=== PATIENT | female | born 1955 | race Caucasian/White ===

== ENCOUNTER 2017-09-01 07:30 | Inpatient (IN) | payer BC ==
--- NOTE | 2017-11-11 13:28 | HP ---
H&P (Free Text) History and Physical: Date of Visit: November 05, 2017 Patient Name: Joleen العراقي : 1955 Gender: female Age: 62 years Primary Care Physician: CAMERON Lauren Reason for Visit: H and P for Right THR 11/04/17 - Prescription Monitoring CC: History and physical examination prior to undergoing a right total hip arthroplasty on 11/17/2017. HPI: Ms. العراقي is a pleasant 62-year-old female who was scheduled to undergo a right total hip arthroplasty in August, however was found to need further medical workup including a cardiology consultation. She underwent this with Dr. Guerrero on 09/11/2017 where she was cleared for the surgical procedure. She as well has been seen by her primary doctor's office, Dr. Calvo, and was offered clearance for a right total hip replacement. The patient has tried conservative methods such as NSAIDs and decreased activity, however has had no benefit from this and has elected to undergo a right total hip arthroplasty by Dr. Nguyen. CURRENT MEDICATIONS: 1. Metoprolol 25 mg b.i.d. 2. Hydrochlorothiazide 25 mg daily. 3. Spiriva. 4. Metformin 1000 mg 1 tablet b.i.d. 5. NURSING HOME ADMISSIONS DIRECTOR Thyroid 90 mg 1 tablet by mouth each morning. 6. Vitamin D3 4000 international units twice daily. 7. Lipitor 10 mg 1 tablet by mouth at bedtime. 8. Cozaar 50 mg 1 tablet by mouth daily. 9. Ibuprofen 800 mg by mouth 3 times a day as needed. 10. Diclofenac sodium 75 mg 1 tablet twice daily with food. ALLERGIES: Penicillin. PAST MEDICAL HISTORY: 1. Diabetes with a typical blood sugar taken at home of 128. 2. Osteoarthritis. 3. Hypertension. 4. Elevated cholesterol. PAST SURGICAL HISTORY: 1. Left total hip arthroplasty, 06/2016. 2. Tubal ligation approximately 37 years ago. SOCIAL HISTORY: The patient is currently a tobacco smoker, approximately 10 cigarettes a day. Denies alcohol. Currently living with her , retired. Postoperatively the patient will either go home or stay with her sister in [place]. She is unsure if she would want visiting home nurse services and physical therapy, as she feels that she would benefit more from outpatient. We discussed either using Coumadin or Xarelto, depending on her choice at time of discharge. ROS: GENERAL: Negative for lightheadedness, dizziness, weight gain or loss. No difficulty with anesthesia. HEENT: No headaches, history of seizures or epilepsy. LUNGS: No history of COPD, chronic cough or shortness of breath. CARDIAC: History of tachycardia which was evaluated by cardiology and cleared. No history of murmurs, heart attacks or chest pain. : Negative for urinary frequency, urgency, urinary tract infections, or kidney stones. GI: Negative for nausea, vomiting, constipation, and diarrhea. No history of blood in her stool or her urine. NEUROLOGIC: No numbness or tingling. No paresthesias. HEMATOLOGIC: Negative for DVT. Negative for anemia. ENDOCRINE: Positive for DM. Positive for thyroid disorders. INTEGUMENTARY: No open wounds or sores. No difficulty with wound healing. INFECTIOUS DISEASE: No history of MRSA, MARCELINO, HIV or hepatitis. Vitals: Ht: 62" Wt: 245lb BP: 140/86 Resp: 20 Pain Level: 0 BMI: 44.8 EXAM: GENERAL: Well appearing, no acute distress. Alert and oriented. Appears slightly older than stated age. LUNGS: Clear to auscultation bilaterally. No crackles, rhonchi or wheezes. HEART: Regular rate and rhythm. No murmurs, gallops or rubs. ABDOMEN: Soft, nontender, nondistended. Obese. Negative CVA tenderness bilaterally. LOWER EXTREMITIES: Mildly antalgic gait, favoring the left-hand side. Tenderness with internal rotation. Posterior tibial pulses 2+ bilaterally. Negative Homans sign bilaterally. Moderate edema bilaterally in lower extremities. Positive dorsiflexion and plantar flexion bilaterally. Sensation intact to light touch. STUDIES: X-rays were obtained of the right hip and pelvis on 11/05/[address] Nguyen. ASSESSMENT: Right end stage osteoarthritis. PLAN: The patient is scheduled to undergo a right total hip arthroplasty with Dr. Nguyen on 11/17/2017. She has been cleared by her primary care doctor as well as her cytotechnologist/cytology supervisor. She would like to recover either at home or at her sister's house postoperatively, and may decline visiting home nurse services and home PT and instead move to outpatient physical therapy. We discussed different anticoagulation such as Coumadin or Xarelto with her if she does not have visiting home nurse services. Her pain medication of Percocet 5/325 was sent to the patient preoperatively. She was educated to stop taking her diclofenac as well as taking her ibuprofen at least 5 days prior to the surgery. She had no other questions or concerns.
[2017-11-17] MEDS ORDERED: Acetaminophen IV 1GM/100ML * 1,000 MG/100 ML VIAL IVPB ONE (06:00)
[2017-11-17] MEDS ORDERED: Famotidine TAB* 20 MG PO ONE (06:00)
[2017-11-17] MEDS ORDERED: Dexamethasone IV* 4 MG/ML 1 ML (4 MG) IV SLOW PU ONE (06:00)
[2017-11-17] MEDS ORDERED: Buffered Lidocaine 0.9% SYRIN* 5 ML/SYR SYRINGE INTRADERM ONE (06:00)
[2017-11-17] MEDS ORDERED: celeCOXIB CAP* 200 MG PO ONE (06:00)
[2017-11-17] MEDS ORDERED: Gabapentin CAP(*) 300 MG PO ONE (06:00)
[2017-11-17] MEDS ORDERED: celeCOXIB CAP* 100 MG ONE (06:06)
[2017-11-17] MEDS ORDERED: Gabapentin CAP(*) 300 MG ONE (06:06)
[2017-11-17] MEDS ORDERED: Dexamethasone IV* 4 MG/ML 1 ML (4 MG) ONE (06:06)
[2017-11-17] MEDS ORDERED: Clindamycin 900 MG IVPREMIX(* 0 MG/0 ML SDV IV ONE (06:07)
[2017-11-17] MEDS ORDERED: Famotidine TAB* 20 MG ONE (06:07)
[2017-11-17] MEDS ORDERED: Buffered Lidocaine 0.9% SYRIN* 5 ML/SYR SYRINGE ONE (06:07)
[2017-11-17] MEDS ORDERED: Acetaminophen IV 1GM/100ML * 100 ML ONE (06:09)
[2017-11-17] MEDS ORDERED: Midazolam* 1 MG/ML 10 ML VIAL (10 MG) ONE (06:56)
[2017-11-17] MEDS ORDERED: fentaNYL* 50 MCG/ML 2 ML VIAL (100 MCG VIAL) ONE (06:56)
[2017-11-17] MEDS ORDERED: Propofol* 10 MG/ML 20 ML BTL IV PUSH ONE (06:57)
[2017-11-17] MEDS ORDERED: Ondansetron INJ* 2 MG/ML VIAL ONE (06:57)
[2017-11-17] MEDS ORDERED: Phenylephrine INJ* 10 MG/ML 1 ML VIAL (10 MG) ONE (06:57)
[2017-11-17] MEDS ORDERED: celeCOXIB CAP* 100 MG PO ONE (07:00)
[2017-11-17] MEDS ORDERED: ceFAZolin 2 GM PREMIX (*) 2 GM/50 ML BAG IVPB ONE (07:10)
[2017-11-17] MEDS ORDERED: Bupivacaine 0.5% SDV PF* 10-30ML VIAL ONE (07:14)
[2017-11-17] MEDS ORDERED: ROPIVACAINE 5 MG/ML 30 ML BTL (0.5%) ONE (07:15)
[2017-11-17] MEDS ORDERED: Levalbuterol HFA INHALER* 1 PUFF MDI ONE (07:15)
[2017-11-17] MEDS ORDERED: Levalbuterol 0.63MG/3ML NEB* UNIT OF USE INH ONE ×2 (07:33→08:40)
[2017-11-17] MEDS ORDERED: Lidocaine 2% PF * 5 ML VIAL ONE (08:10)
[2017-11-17] MEDS ORDERED: Naloxone* 0.4 MG/ML 1 ML VIAL IV PRN (08:34)
[2017-11-17] MEDS ORDERED: HYDROmorphone INJ* 1 MG/ML CARPUJECT SYRINGE IV PRN (08:34)
[2017-11-17] MEDS ORDERED: fentaNYL* 50 MCG/ML 2 ML VIAL (100 MCG VIAL) IV PRN (08:34)
[2017-11-17] MEDS ORDERED: Ondansetron INJ* 2 MG/ML VIAL IV PRN (08:34)
[2017-11-17] MEDS ORDERED: Morphine INJ* 2 MG/ML 1 ML CARPUJECT IV PRN (10:28)
[2017-11-17] MEDS ORDERED: Magnesium Hydroxide LIQ* 30 ML UDC PO PRN (10:28)
[2017-11-17] MEDS ORDERED: Ondansetron TAB* 4 MG PO PRN (10:28)
[2017-11-17] MEDS ORDERED: Cyclobenzaprine TAB* 10 MG PO PRN (10:28)
[2017-11-17] MEDS ORDERED: Morphine INJ* 4 MG/ML 1 ML CARPUJECT IV PRN (10:28)
--- NOTE | 2017-11-17 11:09 | RAD ---
Indication: Right hip replacement. Single view of the pelvis with special attention to the right hip demonstrates right hip replacement in satisfactory position. No periprosthetic fracture is noted. IMPRESSION: Right hip replacement in satisfactory position.
--- NOTE | 2017-11-17 11:51 | OP ---
DATE OF OPERATION: 11/17/17 - ROOM #[id number] DATE OF : 57 SURGEON: Camron Nguyen MD PHLEBOTOMY PROGRAM COORDINATOR: CAMERON Mccloud ANESTHESIA: Spinal with sedation. PRE-OP DIAGNOSIS: Osteoarthritis, right hip. POST-OP DIAGNOSIS: Osteoarthritis, right hip. OPERATIVE PROCEDURE: Right total hip arthroplasty. ESTIMATED BLOOD LOSS: 100 cc. COMPLICATIONS: None. HARDWARE: Barb #6, reduced to length standard offset M/L taper, 52 mm Continuum cup, 15 degree elevated liner, plus 0, 36 mm head. SUMMARY: Ms. العراقي is a 62-year-old female who has had a long history of troubles with her joints. She had undergone a left total hip arthroplasty and had done very well with that. She was very interested in having her right hip done as well. I discussed with her that a total hip arthroplasty should work well to decrease her pain and improve her function. Risks of surgery such as infection, scar formation, stiffness, DVT, pulmonary embolism, hardware failure , leg length discrepancy, instability and continued pain were some of the risks discussed. She had been declared medically optimized and wished to proceed. DESCRIPTION OF PROCEDURE: The patient was brought to the OR and spinal anesthesia was introduced. Gao catheter was placed. She was then rolled into the left lateral decubitus position and an axillary roll was placed. Right hip area was prepped and then draped. An incision was made centered about where I thought the greater trochanter was, it was carried down through the skin and subcutaneous fat. Small bleeders encountered were ligated using electrocautery. Eventually the fascia was found and with palpation, I could feel nicely over her greater trochanter. The fascia was split proximally and then the muscle underneath was bluntly split using fingertip dissection. Trochanteric bursa was taken down using electrocautery and a sharp Courtney was placed under the gluteus medius/gluteus minimus. A nice exposure of the piriformis was obtained. Electrocautery was then used to take down the short external rotators and capsule and quite a bit of clear joint fluid was encountered. T capsulotomy was made and the hip was easily dislocated. Femoral neck was marked using the cutting guide and femoral head was resected. Anterior C retractor was placed, even with just the C retractor this broke into her acetabulum anteriorly. Beginning with a 44 reamer, she was first deepened a little bit and then progressively expanded. I still had a shell of bone anteriorly even with the small hole. Similar to the left side at 50, I had good bleeding bone and a 50 mm reamer was run and the 52 mm cup was impacted into place. Even with the anterior defect, I had a nice solid scratch fit. Two screws were placed and a wonderful bite was obtained with both of them. Trial liner was placed and attention was turned to the proximal femur. Superior/posterior portion of her incision had to be extended in order to allow access to the femoral shaft considering the depth of fat that she had. Millicent Corona was present throughout the case from positioning to approach and trial and then placement of the instruments in the case and then closure. The case could not have been done without an assist. Eventually, better exposure was obtained and box osteotome was used to open the femoral canal. Canal finder was eventually easily passed. Beginning with a 4 broach, she was progressively broached to a 6 and I had some resistance with the 6. She had a 5 on the other side and while I knew I could go to at least a 6 if not a 7.5, considering how tight she was with the 6 and the resistance I had, I thought I would stay at the 6. She was then trialed with a 0 as well as a minus 3.5 and at 45 degrees of internal rotation, she would tend to leaver out and when she was up at 90 degrees of hip flexion. She could not get further because of her body habitus. Considering that there was a small suction that would open, I thought having the 15 degree elevated liner posteriorly would improve her stability and this was called for. When the broach was reapplied, the 6 was solid in the femur. The 6 was removed and the trial liner was removed. A 15 degree elevated liner was impacted into place. Hip was again copiously pulse lavaged. A #6 M/L taper with a standard offset but reduced neck length was then impacted into place. She was trialed with a minus and I actually had managed a countersink the 6 just a little bit and that I wanted to lengthen her a little bit, I went with the plus 0 head. 0 head was impacted into place and she had even better stability where only at 60 degrees did she start to lose suction over the hip. The hip was again copiously pulse lavaged and the fascia was repaired using interrupted #1 Vicryl sutures. Subcutaneous tissues were repaired in layers. The skin was closed using juan. Sterile dressing and an abduction pillow were applied in the OR. The patient was then rolled onto the hospital bed and was stable on transfer to the recovery room. [id number]/[facility] #: [id number] MTDD
[2017-11-17] MEDS ORDERED: Dextrose 50% Syringe 50 ML* 25 GM/50 ML SYRINGE IV PUSH PRN (12:21)
--- NOTE | 2017-11-17 13:38 | CONS ---
CC: Camron Nguyen MD; Dr. Calvo. CONSULTATION REPORT: DATE OF ADMISSION: 11/17/17 DATE OF CONSULT: 11/17/17 PATIENT OF: Camron Nguyen MD REFERRED TO: Dr. Yoon Calzada. PRIMARY CARE PHYSICIAN: CAMERON Lauren from Dr. Calvo office. CHIEF COMPLAINT: Right hip osteoarthritis. REASON FOR CONSULT: Medical management. HISTORY OF PRESENT ILLNESS: Mrs. العراقي is a pleasant 62-year-old female with past medical history significant for hypertension, hyperlipidemia, COPD, and osteoarthritis who was admitted on 11/17/17 after she underwent a right total hip replacement. The patient was initially scheduled to undergo a right total hip back in August of this year, however, was found to need further medical workup including a cardiology consultation. She was seen by Dr. Guerrero in early September and she was cleared for her hip replacement from a cardiac standpoint. She is a patient of Dr. Calvo office and she was seen by his physician pharmacy technician assistant, Dafne Roy, and obtained a medical clearance for her hip replacement as well. The patient has had chronic issue with bilateral hip pain for which she had left total hip arthroplasty back in June 2016. She has tried multiple conservative methods such as NSAIDs and decreased activity level ; however, she had no benefit from this and she was found to be a good candidate for right total hip arthroplasty to be performed on a later date. We were asked to see the patient for medical management after her hip replacement. She was seen in consultation at the recovery room. She denied any chest pain , shortness of breath, or any other associated symptoms. She has been a long- time smoker approximately a pack per day and would like to consider smoking cessation during her hospitalization. PAST MEDICAL HISTORY: Significant for: 1. Hypertension. 2. COPD without exacerbation or history of pneumonia. 3. Diabetes mellitus. 4. Hyperlipidemia. 5. Osteoarthritis. PAST SURGICAL HISTORY: Significant for a left total hip arthroplasty back in June 2016. She also had a tubal ligation about 37 years ago. CURRENT MEDICATIONS: Her medications at home include: 1. Metoprolol 25 mg p.o. b.i.d. 2. Hydrochlorothiazide 25 mg p.o. daily. 3. Spiriva MDI inhaler 2 puffs in the morning for shortness of breath. 4. Metformin 1000 mg 1 tablet b.i.d. 5. Thyroid [place] supplement 90 mg 1 tablet q.a.m. 6. Vitamin D3 4000 International Units twice daily. 7. Lipitor 10 mg p.o. q.h.s. 8. Cozaar 50 mg 1 tablet daily. 9. Ibuprofen 800 mg t.i.d. as needed for arthritic aches and pains. 10. Diclofenac 75 mg 1 tablet b.i.d. with food. ALLERGIES: She is allergic to PENICILLIN. FAMILY HISTORY: She denies any family history of stroke or heart disease. SOCIAL HISTORY: The patient is , lives with her . Both of them are retired. She is a current smoker of approximately 1 pack per day. She denies alcohol intake. REVIEW OF SYSTEMS: See HPI, otherwise negative. She denies any headache, dizziness, blurred vision, or double vision. No sore throat, cough, wheezing, or shortness of breath. She denies any chest pain, palpitations, or ankle swelling. No back pain, flank pain, dysuria, hematuria, or urinary frequency. No fever, chills, night sweats, or recent weight loss. PHYSICAL EXAM: General: She is a pleasant, obese, upper middle age female, lying comfortably on her bed at PACU, and in no acute distress or discomfort. Vitals: Revealed blood pressure of 135/91, pulse of 63, respirations of 12, and O2 sat of 98% on 2 L oxygen. HEENT: Head is normocephalic, atraumatic. Sclerae anicteric. PERRLA. EOMs intact. Oropharynx is pink, moist with no exudate. Neck: Supple. Trachea midline. No cervical adenopathy, thyromegaly, or JVD. Lungs: Clear to auscultation bilaterally. There are decreased breath sounds at the bases, but no rales, wheezes, or rhonchi. Heart: Regular rate and rhythm. Normal S1 and S2 without rubs, murmurs, or gallops. Back: With normal curvature. No CVA tenderness. Breast Exam: Deferred at this time. Abdomen: Soft, round and obese, nontender, and nondistended. There is no hernia, masses, or hepatosplenomegaly. There is no guarding, rigidity, or rebound tenderness. Extremities: Without cyanosis, clubbing, or edema. Dressing from right hip replacement with associated pillow was noted in the lower extremities. Neurologic: Grossly intact. Rectal Exam: Deferred at this time. DIAGNOSTIC STUDIES/LAB DATA: The patient's glucose [id number] checked preoperatively was 130 and postoperatively was 112 at PACU. IMPRESSION: A 62-year-old female who underwent a right total hip replacement, postop day #0 with multiple medical comorbidities including hypertension, diabetes mellitus, chronic obstructive pulmonary disease, hyperlipidemia, and tobacco abuse who will be followed by the hospitalist team for medical management. PLAN/RECOMMENDATIONS: 1. Right hip end-stage osteoarthritis. The patient is postop day #0 status post total right hip replacement on 11/17/17. All management is to be determined by the orthopedic team. The patient will start her physical therapy and occupational therapy tomorrow. She has a Gao catheter in place, I anticipate will be discontinued tomorrow. Anticoagulation therapy will be initiated with heparin at 5000 units subQ and it is up to the orthopedic team to determine Coumadin coverage vs Xarelto based on the patient's preference. She appears to be comfortable at this point and will be covered with analgesics and narcotics for pain control. 2. Hypertension. The patient's blood pressure appears to be stable. We will continue her metoprolol, hydrochlorothiazide, and Cozaar as scheduled. 3. Chronic obstructive pulmonary disease without exacerbation. The patient appears to be comfortable with good oxygen saturation. We will maintain her on oxygen supplement via nasal cannula and titrate to keep oxygen saturation above 95%. We will maintain her on her Spiriva and add a nebulizer treatment on as needed basis. 4. Diabetes mellitus. The patient informed me that her blood sugar runs at home at 120 to 128 using her metformin. I discussed with her better glycemic control in the immediate postoperative period and that will include frequent blood glucose monitoring at q.h.s. and q.a.c. and to cover her with insulin scale. 5. Hyperlipidemia. We will continue her Lipitor. 6. Tobacco abuse. I had a discussion with the patient about smoking cessation and she seems to be willing to try quitting during her hospitalization. I offered and provided nicotine patch to use and will discuss smoking quit hotline if needed when she is discharged home. 7. DVT prophylaxis: The patient will be covered with subcu heparin t.i.d. and the orthopedic team will determine long-term anticoagulation therapy with Coumadin or Xarelto. 8. Code status: The patient is a full code. Thank you for this consultation and we will follow up with the patient accordingly. CAMERON CALDERON [id number]/[facility] #: [id number] MTDD
--- NOTE | 2017-11-17 15:01 | CONS ---
CC: Dr. Nguyen; Dr. Gil Calvo * CONSULTATION REPORT: ADDENDUM: Case was reviewed and discussed with Domenica BARNES. Ms. العراقي is a 62-year-old lady with a past medical history of hypertension, COPD , diabetes, hyperlipidemia, osteoarthritis, who was admitted for an elective right total hip arthropathy on 11/17/17. The hospitalist service was consulted to manage her comorbidities. At this point, her blood pressure is well controlled. We are going to hold her diuretics and continue her losartan and metoprolol with holding parameters. Her diabetes seems to be well controlled as an outpatient with metformin only, so we are going to check her fingersticks and cover with lispro sliding scale. The hospitalist service will continue to follow with you. Thank you for this consultation. [id number]/[facility] #: [id number] TONEY
[2017-11-17] MEDS: ceFAZolin 1 GM in Dextrose (*) 1 GM/50 ML BAG IVPB SCH (15:33)
[2017-11-17] MEDS ORDERED: Mouth Piece, Nicotine* 1 EACH CARTRIDGE INH ONE (16:00)
[2017-11-17] MEDS ORDERED: Nicotine Inhaler* 10 MG AMP Q2H PRN CRAVING INH (16:00)
[2017-11-17] MEDS ORDERED: Warfarin TAB(*) 10 MG PO ONE (17:00)
[2017-11-17] MEDS: Insulin LISPRO* 1 UNITS UNIT SUBCUT SCH (17:15)
[2017-11-17] MEDS ORDERED: metFORMIN* 1,000 MG TAB PO SCH (21:00)
[2017-11-17] MEDS ORDERED: Metoprolol Tartrate TAB* 25 MG PO SCH (21:00)
[2017-11-17] MEDS: oxyCODONE/Acetamin 5/325 MG* TAB PO PRN (23:23)
[2017-11-17] MEDS: Heparin VIAL(*) 5000 UNITS/ML VIAL (FIVE THOUSAND) SUBCUT SCH (23:24)
[2017-11-17] MEDS: Docusate CAP* 100 MG PO SCH (23:24)
[2017-11-17] MEDS: Metoprolol Tartrate TAB* 25 MG PO SCH (23:24)
[2017-11-17] MEDS: Magnesium Hydroxide LIQ* 30 ML UDC PO SCH (23:27)
[2017-11-17] MEDS: Clobetasol 0.05% OINT* 30 GM TUBE TOPICAL SCH (23:27)
[2017-11-17] MEDS: Nicotine Patch Removal NOTE PATCH OFF SCH (23:28)
[2017-11-18] MEDS: ceFAZolin 1 GM in Dextrose (*) 1 GM/50 ML BAG IVPB SCH ×2 (00:10→08:02)
[2017-11-18] MEDS: Insulin LISPRO* 1 UNITS UNIT SUBCUT SCH ×5 (00:12→21:44)
[2017-11-18] MEDS: oxyCODONE/Acetamin 5/325 MG* TAB PO PRN ×2 (04:24→13:03)
[2017-11-18 06:27] LABS: Hematocrit 31 % (35-47); Hemoglobin 10.4 g/dl (12.0-16.0); Mean Platelet Volume 8.9 um3 (7.4-10.4); Platelet Count 239 10^3/ul (150-450)
[2017-11-18 06:38] LABS: EGFR Non-African American 78.6 (>60)
[2017-11-18 06:47] LABS: INR 1.1 (0.77-1.02)
[2017-11-18] MEDS: oxyCODONE TAB* 5 MG TAB PO PRN ×2 (08:03→19:07)
[2017-11-18] MEDS: Metoprolol Tartrate TAB* 25 MG PO SCH ×2 (08:32→21:50)
[2017-11-18] MEDS: Atorvastatin* 10 MG TAB PO SCH (08:32)
[2017-11-18] MEDS: Thyroid TAB* 30 MG PO SCH (08:32)
[2017-11-18] MEDS: Docusate CAP* 100 MG PO SCH ×2 (08:32→21:44)
[2017-11-18] MEDS: Losartan TAB* 25 MG PO SCH (08:32)
[2017-11-18] MEDS: Nicotine PATCH 21 MG/24 HR* PATCH TRANSDERM SCH (08:33)
[2017-11-18] MEDS: Cholecalciferol TAB* 1000 UNITS PO SCH (08:33)
[2017-11-18] MEDS: Clobetasol 0.05% OINT* 30 GM TUBE TOPICAL SCH ×2 (08:35→21:51)
[2017-11-18] MEDS: Magnesium Hydroxide LIQ* 30 ML UDC PO SCH ×2 (08:35→21:44)
[2017-11-18] MEDS: Heparin VIAL(*) 5000 UNITS/ML VIAL (FIVE THOUSAND) SUBCUT SCH ×2 (08:35→21:50)
[2017-11-18] MEDS: NF:Tiotropium Respimt 2.5 mcg(NF) 1 PUFF MDI INH SCH (08:43)
[2017-11-18] MEDS ORDERED: Losartan TAB* 25 MG PO SCH (09:00)
[2017-11-18] MEDS ORDERED: Hydrochlorothiazide TAB* 25 MG PO SCH (09:00)
--- NOTE | 2017-11-18 09:26 | PN ---
Progress Note - Progress Note Date of Service: 11/18/17 SOAP: Subjective: []Patient seen OOB in chair. Pain is well controlled, 3-4/10 with movement. Denies chest pain, shortness of breath, dizziness, nausea, fever or chills. Has refused to do stairs with PT today. Desires dc home tomorrow and prefers outpatient PT. Objective: [] Vital Signs Temp 98.6 F 11/18/17 07:46 Pulse 68 11/18/17 07:46 Resp 16 11/18/17 08:03 BP 112/59 11/18/17 07:46 Pulse Ox 94 11/18/17 08:21 Intake & Output 11/17/17 11/18/17 11/18/17 18:59 06:59 18:59 Intake Total 4050 2999 Output Total 2705 2500 300 Balance 1345 499 -300 Intake: IV Fluids 2400 1025 LR 2400 1025 IVPB 334 LR 334 Oral 1650 1640 Output: Urine 300 Gao 2575 2500 Residual 30 Gao 16 Fr 30 Estimated Blood Loss 100 Other: # Bowel Movements 0 Laboratory Last Values Hgb 10.4 g/dl (12.0-16.0) L 11/18/17 05:30 Hct 31 % (35-47) L 11/18/17 05:30 Plt Count 239 10^3/ul (150-450) 11/18/17 05:30 MPV 8.9 um3 (7.4-10.4) 11/18/17 05:30 INR (Anticoag Therapy) 1.10 (0.77-1.02) H 11/18/17 05:30 Sodium 140 mmol/L (139-145) 11/18/17 05:30 Potassium 4.3 mmol/L (3.5-5.0) 11/18/17 05:30 Chloride 107 mmol/L (101-111) 11/18/17 05:30 Carbon Dioxide 27 mmol/L (22-32) 11/18/17 05:30 Anion Gap 6 mmol/L (2-11) 11/18/17 05:30 BUN 13 mg/dL (6-24) 11/18/17 05:30 Creatinine 0.75 mg/dL (0.51-0.95) 11/18/17 05:30 Est GFR ( Amer) 101.0 (>60) 11/18/17 05:30 Est GFR (Non-Af Amer) 78.6 (>60) 11/18/17 05:30 BUN/Creatinine Ratio 17.3 (8-20) 11/18/17 05:30 Glucose 133 mg/dL (70-100) H 11/18/17 05:30 POC Glucose (mg/dL) 167 mg/dL (70-100) H 11/17/17 23:35 Calcium 8.5 mg/dL (8.6-10.3) L 11/18/17 05:30 General: Well appearing, NAD, calm and cooperative. RLE: Right hip dressing CDI without surrounding erythema. Thigh soft. DF/PF intact. 2+ dp pulse, capillary refill less than two seconds distally. Sensation intact distally. Assessment: []POD 1: s/p right total hip arthroplasty 11/17, Dr Nguyen Plan: []WBAT PT/OT. Encouraged to participate fully with PT, report any concerns to staff. Continued hip precautions. Lovenox, coumadin 6 mg today. Coumadin while in house. Will likely transition to xarelto at DC if patient denies home services. Tentative plan DC home tomorrow
--- NOTE | 2017-11-18 15:02 | PN ---
Subjective Date of Service: 11/18/17 Interval History: Pt feels well, did well with PT, no new complaints Objective Active Medications: Atorvastatin Calcium (Lipitor*) 10 mg PO QAM [facility] Last Admin: 11/18/17 08:32 Dose: 10 mg Cholecalciferol (Vitamin D Tab*) 5,000 units PO QAM [facility] Last Admin: 11/18/17 08:33 Dose: 5,000 units Clobetasol Propionate (Clobetasol 0.05% Oint*) 1 applic TOPICAL BID [facility] Last Admin: 11/18/17 08:35 Dose: 1 applic Cyclobenzaprine HCl (Flexeril Tab*) 10 mg PO TID PRN PRN Reason: SPASMS Dextrose (D50w Syringe 50 Ml*) 12.5 gm IV PUSH .FOR FS < 60 - SS PRN PRN Reason: FS < 60 Docusate Sodium (Colace Cap*) 100 mg PO BID [facility] Last Admin: 11/18/17 08:32 Dose: 100 mg Heparin Sodium (Porcine) (Heparin Vial(*)) 5,000 units SUBCUT Q12HR [facility] Last Admin: 11/18/17 08:35 Dose: 5,000 units Lactated Ringer's (Lactated Ringers 1000 Ml Bag*) 1,000 mls @ 100 mls/hr IV PER RATE [facility] Last Admin: 11/18/17 03:36 Dose: 100 mls/hr Insulin Human Lispro (Humalog*) 0 units SUBCUT ACHS [facility] PRN Reason: Protocol Last Admin: 11/18/17 13:21 Dose: 3 units Losartan Potassium (Cozaar Tab*) [facility] Last Admin: 11/18/17 08:32 Dose: 50 mg Magnesium Hydroxide (Milk Of Magnesia Liq*) 30 ml PO BID [facility] Last Admin: 11/18/17 08:35 Dose: 30 ml Magnesium Hydroxide (Milk Of Magnesia Liq*) 30 ml PO Q6H PRN PRN Reason: constipation Metoprolol Tartrate (Lopressor Tab*) 25 mg PO BID [facility] Last Admin: 11/18/17 08:32 Dose: 25 mg Morphine Sulfate (Morphine Inj (Syringe)*) 2 mg IV Q2H PRN PRN Reason: PAIN - BREAKTHROUGH Morphine Sulfate (Morphine Inj (Syringe)*) 4 mg IV Q2H PRN PRN Reason: PAIN - UNRELIEVED Nicotine (Nicotine Patch 21 Mg/24 Hr*) 1 patch TRANSDERM DAILY [facility] Last Admin: 11/18/17 08:33 Dose: 1 patch Nicotine (Nicotine Inhaler*) 10 mg INH Q2H PRN PRN Reason: CRAVING Last Admin: 11/17/17 16:02 Dose: 10 mg Ondansetron HCl (Zofran Tab*) 4 mg PO Q6H PRN PRN Reason: NAUSEA Oxycodone HCl (Roxycodone Tab*) 10 mg PO Q4H PRN PRN Reason: PAIN - SEVERE Last Admin: 11/18/17 08:03 Dose: 10 mg Oxycodone/Acetaminophen (Percocet 5/325 Tab*) 2 tab PO Q4H PRN PRN Reason: PAIN - MODERATE Last Admin: 11/18/17 13:03 Dose: 2 tab Oxycodone/Acetaminophen (Percocet 5/325 Tab*) 1 tab PO Q4H PRN PRN Reason: PAIN - MILD Last Admin: 11/18/17 04:24 Dose: 1 tab Pharmacy Profile Note (Nicotine Patch Removal Note*) 1 note PATCH OFF 2099 [facility] Last Admin: 11/17/17 23:28 Dose: Not Given Thyroid (Thyroid Tab*) 90 mg PO QAM [facility] Last Admin: 11/18/17 08:32 Dose: 90 mg Tiotropium [place] (Spiriva Respimat 2.5 Mcg(Nf)) 2 puff INH QAM [facility] Last Admin: 11/18/17 08:43 Dose: Not Given Warfarin Sodium (Coumadin Tab(*)) 6 mg PO ONCE@1700 ONE PRN Reason: Protocol Stop: 11/18/17 17:01 Vital Signs - 8 hr 11/18/17 11/18/17 11/18/17 07:04 07:46 08:00 Temperature 98.6 F Pulse Rate 68 Respiratory 18 16 16 Rate Blood Pressure 112/59 (mmHg) O2 Sat by Pulse 96 94 Oximetry 11/18/17 11/18/17 11/18/17 08:03 08:21 13:03 Temperature Pulse Rate Respiratory 16 16 Rate Blood Pressure (mmHg) O2 Sat by Pulse 94 Oximetry Oxygen Devices in Use Now: None, CPAP Appearance: 62 yo F in nAD, AAOx3 Eyes: No Scleral Icterus, PERRLA Ears/Nose/Mouth/Throat: NL Teeth, Lips, Gums, Mucous Membranes Moist Neck: NL Appearance and Movements; NL JVP, Trachea Midline Respiratory: Symmetrical Chest Expansion and Respiratory Effort, - - coarse breath sounds b/l Cardiovascular: NL Sounds; No Murmurs; No JVD, RRR Abdominal: NL Sounds; No Tenderness; No Distention, No Hepatosplenomegaly Lymphatic: No Cervical Adenopathy Extremities: No Clubbing, Cyanosis, - - +1 pitting pedal edema b/l Skin: No Nodules or Sclerosis, - - r hip post op incision not inspected Neurological: Alert and Oriented x 3, NL Muscle Strength and Tone Result Diagrams: 11/18/17 05:30 11/18/17 05:30 Assess/Plan/Problems-Billing Assessment: 62 yo F with h/o smoking 1 ppd, COPD, HTN, dyslipidemia, hypothyroid , DM2 s/p elective R hip replacement on 11/17/17 - Patient Problems (1) Status post total hip replacement, right Comment: doing well As per ortho service (2) Diabetes Comment: - FSBGs fairly well controlled. Continue FSBG AC with lispro ISS. Hold home oral medications, restart on DC. CC diet (3) Hypertension Comment: cont losartan, lopressor. (4) Hypothyroid Comment: continue thyroid home dose (5) Sleep apnea Comment: - cpap (6) DVT prophylaxis Comment: HSQ/coumadin (7) Smoking Comment: counseled to stop x 5 min today on nicotine replacement Status and Disposition: medicine consult, will follow
[2017-11-18] MEDS ORDERED: Warfarin TAB(*) 6 MG PO ONE (17:00)
[2017-11-18] MEDS: Nicotine Patch Removal NOTE PATCH OFF SCH (21:51)
[2017-11-19] MEDS: oxyCODONE/Acetamin 5/325 MG* TAB PO PRN ×3 (02:06→14:08)
[2017-11-19] MEDS: oxyCODONE TAB* 5 MG TAB PO PRN (06:05)
[2017-11-19 07:03] LABS: INR 2.15 (0.77-1.02)
[2017-11-19 07:13] LABS: Hematocrit 29 % (35-47); Hemoglobin 9.5 g/dl (12.0-16.0); Platelet Count 221 10^3/ul (150-450)
[2017-11-19] MEDS: Insulin LISPRO* 1 UNITS UNIT SUBCUT SCH ×2 (07:45→12:24)
[2017-11-19] MEDS: Losartan TAB* 25 MG PO SCH (08:48)
[2017-11-19] MEDS: Metoprolol Tartrate TAB* 25 MG PO SCH (08:48)
[2017-11-19] MEDS: Nicotine PATCH 21 MG/24 HR* PATCH TRANSDERM SCH (08:49)
[2017-11-19] MEDS: Clobetasol 0.05% OINT* 30 GM TUBE TOPICAL SCH (08:49)
[2017-11-19] MEDS: Docusate CAP* 100 MG PO SCH (08:50)
[2017-11-19] MEDS: Cholecalciferol TAB* 1000 UNITS PO SCH (08:50)
[2017-11-19] MEDS: Thyroid TAB* 30 MG PO SCH (08:51)
[2017-11-19] MEDS: Atorvastatin* 10 MG TAB PO SCH (08:51)
[2017-11-19] MEDS: Magnesium Hydroxide LIQ* 30 ML UDC PO SCH (08:53)
[2017-11-19] MEDS: NF:Tiotropium Respimt 2.5 mcg(NF) 1 PUFF MDI INH SCH (08:53)
[2017-11-19] MEDS: Heparin VIAL(*) 5000 UNITS/ML VIAL (FIVE THOUSAND) SUBCUT SCH (09:15)
[2017-11-19 11:50] VITALS: BP 102/45
--- NOTE | 2017-11-19 12:04 | PN ---
Progress Note - Progress Note Date of Service: 11/19/17 SOAP: Subjective: []Patient seen at bedside. She feels well and desires discharge home. Denies CP , SOB, fever, chills, leg numbness, nausea or dizziness. Objective: [ Laboratory Last Values Hgb 9.5 g/dl (12.0-16.0) L 11/19/17 06:01 Hct 29 % (35-47) L 11/19/17 06:01 Plt Count 221 10^3/ul (150-450) 11/19/17 06:01 MPV 9.0 um3 (7.4-10.4) 11/19/17 06:01 INR (Anticoag Therapy) 2.15 (0.77-1.02) H 11/19/17 06:01 Sodium 140 mmol/L (139-145) 11/18/17 05:30 Potassium 4.3 mmol/L (3.5-5.0) 11/18/17 05:30 Chloride 107 mmol/L (101-111) 11/18/17 05:30 Carbon Dioxide 27 mmol/L (22-32) 11/18/17 05:30 Anion Gap 6 mmol/L (2-11) 11/18/17 05:30 BUN 13 mg/dL (6-24) 11/18/17 05:30 Creatinine 0.75 mg/dL (0.51-0.95) 11/18/17 05:30 Est GFR ( Amer) 101.0 (>60) 11/18/17 05:30 Est GFR (Non-Af Amer) 78.6 (>60) 11/18/17 05:30 BUN/Creatinine Ratio 17.3 (8-20) 11/18/17 05:30 Glucose 133 mg/dL (70-100) H 11/18/17 05:30 POC Glucose (mg/dL) 122 mg/dL (70-100) H 11/19/17 07:44 Calcium 8.5 mg/dL (8.6-10.3) L 11/18/17 05:30 Temp Pulse Resp BP Pulse Ox 98.2 F 76 16 102/45 96 11/19/17 11:06 11/19/17 11:06 11/19/17 11:06 11/19/17 11:11/19/17 11:06 General: Well appearing, NAD, calm and cooperative. RLE: Right hip dressing changed. Incision CDI without surrounding erythema. Thigh soft. DF/PF intact. 2+ dp pulse, capillary refill less than two seconds distally. Sensation intact distally. BL LE: Calves supple and nontender without erythema, edema or palpable cords Assessment: []POD 2: s/p right total hip arthroplasty 11/17, Dr Nguyen Plan: []WBAT PT/OT. Continued hip precautions. May stop heparin. coumadin 0 mg today, recheck INR tomorrow. DC home Will go to [facility] for Physical Therapy and INR checks
--- NOTE | 2017-11-19 22:08 | DS ---
DISCHARGE SUMMARY: DATE OF ADMISSION AND DATE OF SURGERY: 11/17/17 DATE OF DISCHARGE: 11/19/17 SURGEON: Dr. Camron Nguyen.* (DICTATED BY CAMERON PIERRE) PATIENT REGISTRAR: CAMERON Pierre. OPERATIVE PROCEDURE: Right total hip arthroplasty. SUMMARY: Ms. العراقي is a 62-year-old female who has had a long history of troubles with her joints. She had undergone a left total hip arthroplasty and had done very well with that. She was very interested in having her right hip done as well. It was discussed with her that a total hip arthroplasty should work well to decrease her pain and improve her function. She elected to undergo a right total hip arthroplasty. HOSPITAL COURSE: The patient was admitted to [facility] on . She underwent a right total hip arthroplasty without complication. She recovered briefly in the PACU and then was transferred to the short-stay surgical unit in stable condition. On postop day 1, she was well appearing and in no acute distress. Right hip dressing clean, dry and intact without surrounding erythema. Thigh is soft. Dorsiflexion and plantarflexion are intact , 2+ dorsalis pedis pulse, capillary refill less than 2 seconds distally. Sensation intact distally. She was also seen by the hospitalist service on the stay. She had no new complaints. Postop day 2, well appearing in no acute distress. Right hip dressing changed. Incision clean, dry and intact without surrounding erythema. Thigh is soft. Dorsiflexion and plantarflexion are intact, 2+ dorsalis pedis pulse, capillary refill less than 2 seconds distally. Sensation intact distally. Calf is supple and nontender without erythema, edema or palpable cords. Vital signs: Temperature 98.2, pulse 76, respiratory rate 16, blood pressure 102/45, pulse ox 46, hemoglobin 9.5, hematocrit 29, INR 2.15. The patient was deemed to be medically and orthopedically stable for discharge to home. DISCHARGE MEDICATIONS: Resume home medications except for ibuprofen and diclofenac, which will be held. New medications: 1. Docusate 100 mg p.o. b.i.d. 2. Percocet 5/325 one to two tabs every 4 to 6 hours p.r.n., max daily dose of 10. 3. Warfarin 2 mg tabs 1 to 3 tabs daily per INR dosing DISCHARGE PLAN: The patient will be weightbearing as tolerated. She will continue hip precautions. She will be going to [facility] for blood draws for INR on Mondays and . She will need an appointment in our office in 10 to 12 days for suture removal as well as in 4 weeks for followup with Dr. Nguyen. Pain control with Percocet 5/325 one to two tabs every 4 to 6 hours as needed for pain and not to exceed 10 tabs per day. Coumadin dosing on 11/19/17 is 0 mg. Tomorrow 11/20/17, she will recheck INR for further dressing instructions. CAMERON PIERRE [id number]/CPS #: [id number] MTDD
== END 2017-11-19 14:30 | disposition home or self-care (01) | DRG 301 ==
LOC: AA 11-17 05:51 → SSU 11-17 10:29
PROVIDERS: ADMIT Orthopaedic Surgery; ATTEND Orthopaedic Surgery
PROC: 0SR902Z Replacement of Right Hip Joint with Metal on Polyethylene Synthetic Substitute, Open Approach (ICD-10-PCS; principal; 2017-11-17 07:30)
DX: M16.11 Unilateral primary osteoarthritis, right hip (principal); Z68.42 Body mass index [BMI] 45.0-49.9, adult; F17.210 Nicotine dependence, cigarettes, uncomplicated; E11.9 Type 2 diabetes mellitus without complications; I10 Essential (primary) hypertension; E78.00 Pure hypercholesterolemia, unspecified; Z96.642 Presence of left artificial hip joint; E66.9 Obesity, unspecified; G47.33 Obstructive sleep apnea (adult) (pediatric); J44.9 Chronic obstructive pulmonary disease, unspecified; E03.9 Hypothyroidism, unspecified; Z79.01 Long term (current) use of anticoagulants; Z98.51 Tubal ligation status; Z88.0 Allergy status to penicillin
CPT/HCPCS: 36415; 72170; 80048; 85014; 85018; 85049; 85610; 94760; A9270-GY; C1713; C1776; G8987-GO-CJ; G8988-GO-CI; J0690; J1100; J1644; J2250; J2405; J2704; J2795; J3010